=== PATIENT | male | born 1975 | race Two or more races ===

== ENCOUNTER 2022-07-08 02:42 | Emergency (ER) | payer OTHER ==
[~2022-07-08] VITALS: Ht 182.9 cm; Wt 131.1 kg
[2022-07-08] MEDS ORDERED: ZITHROMAX500 MG PO (07:30)
[2022-07-08] MEDS ORDERED: DOLOGESIC-DF 51 EACH PO (07:30)
== END 2022-07-08 07:39 ==
LOC: ER 02:42
DX: J02.9 Acute pharyngitis, unspecified (principal); R53.81 Other malaise; Z88.6 Allergy status to analgesic agent